=== PATIENT | female | born 1960 | race Caucasian/White ===

== ENCOUNTER 2016-09-13 08:47 | Emergency (ER) | payer OTHER ==
[~2016-09-13] VITALS: Ht 165.1 cm; Wt 85.8 kg
[~2016-09-13 08:47] MED LIST: PROT40TA PO
[2016-09-13 08:52] VITALS: BP 171/94; PULSE 74; RESP 18; TEMP 97.6; O2SAT 100
[2016-09-13 09:05] VITALS: BP 171/94; PULSE 73; RESP 18; TEMP 97.6; O2SAT 100
[2016-09-13] MEDS ORDERED: SYNT25TA PO (09:10)
--- NOTE | 2016-09-13 09:25 | PD ---
HPI Chief Complaint: Hypertension Time Seen by Provider: 09:01 Travel History International Travel<30 days: No Contact w/Intl Traveler<30days: No Traveled to known affect area: No History of Present Illness HPI This 56-year-old female is complaining of feeling lightheaded on standing. She has had some borderline readings of her blood pressure and since checking in yesterday is elevated. She had readings of 177/100, 197 the systolic of 154. She has not had any chest pain or shortness of breath. She has not had any headache there is a family history of coronary artery disease. She has a 37- year-old sister who has had bypass surgery. She does not smoke. 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 She is not on any immunosuppression at this time. PFSH Past Medical History Diminished Hearing: No Genitourinary: No Immunizations Current: Yes Thyroid Disease: Yes Tetanus Vaccination: Unknown ?: Not Menopausal: Yes Past Surgical History Gynecologic Surgery: Yes (HYSTERECTOMY 2006) Hysterectomy: Yes Social History Alcohol Use: Yes (OCASSIONAL WINE) Tobacco Use: No Substance Use: No Allergies-Medications (Allergen,Severity, Reaction): Coded Allergies: Cephalosporins (Verified Allergy, Severe, [facility], 09/13/16) Penicillin (Verified Allergy, Severe, [facility], 09/13/16) Uncoded Allergies: CEPHALSPORIN (Allergy, Severe, [facility]OCK, 10/18/06) Reported Meds & Prescriptions Reported Meds & Active Scripts Active Reported Synthroid (Levothyroxine Sodium) 25 Mcg Tab 25 Mcg PO DAILY Review of Systems General / Constitutional: No: Fever, Chills Eyes: No: Blurred Vision HENT: Positive: Lightheadedness, No: Headaches Cardiovascular: No: Chest Pain or Discomfort, Palpitations Respiratory: No: Cough, Shortness of Breath Gastrointestinal: No: Vomiting, Diarrhea Genitourinary: No: Frequency, Oliguria Musculoskeletal: No: Myalgias, Arthralgias Skin: No Rash Neurologic: No: Syncope, Focal Abnormalities Psychiatric: No: Depression Endocrine: No: Cold Intolerance Hematologic/Lymphatic: No: Easy Bruising Physical Exam Narrative GENERAL: Well-developed female SKIN: Warm and dry. HEAD: Atraumatic. Normocephalic. EYES: Pupils equal and round. No scleral icterus. No injection or drainage. ENT: No nasal bleeding or discharge. Mucous membranes pink and moist. NECK: Trachea midline. No JVD. CARDIOVASCULAR: Regular rate and rhythm. No murmur appreciated. RESPIRATORY: No accessory muscle use. Clear to auscultation. Breath sounds equal bilaterally. GASTROINTESTINAL: Abdomen soft, non-tender, nondistended. Hepatic and splenic margins not palpable. MUSCULOSKELETAL: No obvious deformities. No clubbing. No cyanosis. No edema. NEUROLOGICAL: Awake and alert. No obvious cranial nerve deficits. Motor grossly within normal limits. Normal speech. PSYCHIATRIC: Appropriate mood and affect; insight and judgment normal. Data Data Last Documented VS Vital Signs Date Time Temp Pulse Resp B/P Pulse Ox O2 Delivery O2 Flow Rate FiO2 09/13/16 10:49 73 16 157/86 100 Room Air 09/13/16 09:05 97.6 Orders Orthostatic Vital Signs (09/13/16 09:21) Complete Blood Count With Diff (09/13/16 09:23) Basic Metabolic Panel (Bmp) (09/13/16 09:23) Labs Laboratory Tests Test 09/13/16 09:40 White Blood Count 5.9 TH/MM3 Red Blood Count 4.77 MIL/MM3 Hemoglobin 13.5 GM/DL Hematocrit 40.5 % Mean Corpuscular Volume 85.0 FL Mean Corpuscular Hemoglobin 28.3 PG Mean Corpuscular Hemoglobin 33.3 % Concent Red Cell Distribution Width 12.8 % Platelet Count 350 TH/MM3 Mean Platelet Volume 8.0 FL Neutrophils (%) (Auto) 60.0 % Lymphocytes (%) (Auto) 24.9 % Monocytes (%) (Auto) 12.4 % Eosinophils (%) (Auto) 1.9 % Basophils (%) (Auto) 0.8 % Neutrophils # (Auto) 3.6 TH/MM3 Lymphocytes # (Auto) 1.5 TH/MM3 Monocytes # (Auto) 0.7 TH/MM3 Eosinophils # (Auto) 0.1 TH/MM3 Basophils # (Auto) 0.0 TH/MM3 CBC Comment DIFF FINAL Differential Comment Sodium Level 139 MEQ/L Potassium Level 4.5 MEQ/L Chloride Level 105 MEQ/L Blood Urea Nitrogen 18 MG/DL Creatinine 0.80 MG/DL Estimat Glomerular Filtration 74 ML/MIN Rate Random Glucose 107 MG/DL [facility] Medical Decision Making Medical Screen Exam Complete: Yes Emergency Medical Condition: Yes Medical Record Reviewed: Yes Differential Diagnosis Differential includes hypertension, electrolyte imbalance, anemia Narrative Course Blood work is unremarkable. Patient has sustained elevations of her blood pressure nothing does need to be on medication. I will initiate lisinopril 10 mg daily. She is to follow-up with Dr. Palmer Diagnosis Primary Impression: Hypertension Qualified Code: I10 - Essential hypertension Scripts Lisinopril 10 Mg Tab10 Mg PO DAILY #30 TAB Ref 0 Prov:Ronny Torre MD 09/13/16 Disposition: DISCHARGE HOME Condition: Stable Ronny Torre MD Sep 13, 2016 09:25
[2016-09-13 09:31] VITALS: BP_SYST 159; BP_SYST 178; BP_SYST 183; BP_DIAS 83; BP_DIAS 91; BP_DIAS 92; RESP 18
[2016-09-13 10:00] LABS: AUTOMATED NEUTROPHIL # 3.6 TH/MM3 (1.8-7.7); BASOPHIL % 0.8 % (0.0-2.0); EOSINOPHIL # 0.1 TH/MM3 (0-0.4); EOSINOPHIL % 1.9 % (0.0-4.0); HEMATOCRIT 40.5 % (35.0-46.0); HEMO FLAGS DIFF FINAL; LYMPH % 24.9 % (9.0-44.0); LYMPHOCYTE # 1.5 TH/MM3 (1.0-4.8); MEAN CORPUSCULAR HEMOGLOBIN 28.3 PG (27.0-34.0); MEAN CORPUSCULAR HGB CONC 33.3 % (32.0-36.0); MONO % 12.4 % (0.0-8.0); PLATELET COUNT 350 TH/MM3 (150-450); RED BLOOD COUNT 4.77 MIL/MM3 (4.00-5.30); RED CELL DISTRIBUTION WIDTH 12.8 % (11.6-17.2); WHITE BLOOD COUNT 5.9 TH/MM3 (4.0-11.0)
[2016-09-13 10:15] LABS: POTASSIUM 4.5 MEQ/L (3.5-5.1)
[2016-09-13 10:49] VITALS: BP 157/86; PULSE 73; RESP 16; O2SAT 100
[2016-09-13] MEDS ORDERED: LISI10TA3 PO (10:54)
[2016-09-13 11:36] LABS: BICARBONATE 27.5 MEQ/L (21.0-32.0)
== END 2016-09-13 11:04 | disposition home or self-care (01) ==
LOC: PHED 08:47
DX: I10 Essential (primary) hypertension (principal)
CPT/HCPCS: 80048; 85025; 99284